=== PATIENT | female | born 1975 | race Hispanic/Latino ===

== ENCOUNTER 2021-04-09 22:30 | Emergency (ER) | payer OTHER ==
[~2021-04-09] VITALS: Ht 157.5 cm; Wt 80.3 kg
[2021-04-10] MEDS ORDERED: KETOROLAC 30MG VIAL (30MG/ML) IVP ONE (03:30)
[2021-04-10 03:37] LABS: BASOPHILS % (AUTO) 0.7 % (0.0-5.0); EOSINOPHILS % (AUTO) 2.5 % (0.0-8.0); HEMATOCRIT 37.6 % (36-48); LYMPHOCYTES % (AUTO) 36.9 % (21.0-51.0); MEAN CORPUSCULAR HEMOGLOBIN 27.4 pg (27.0-33.0); MEAN CORPUSCULAR HGB CONC 32.4 g/dL (32.0-36.0); MEAN CORPUSCULAR VOLUME 84.3 fL (79-99); MONOCYTES % (AUTO) 7.3 % (3.0-13.0); NEUTROPHILS % (AUTO) 52.3 % (40.0-77.0); PLATELET COUNT (AUTO) 317 K/uL (130-400); RED BLOOD CELL COUNT(AUTO) 4.46 MIL/uL (4.00-5.50); RED CELL DISTRIBUTION WIDTH 13.8 % (11.0-15.5)
[2021-04-10 03:38] LABS: APPEARANCE,URINE Clear (CLEAR); BILIRUBIN,URINE Negative (NEGATIVE); COLOR,URINE Yellow (YELLOW); GLUCOSE, URINE (UA) Negative (NEGATIVE); KETONES,URINE Negative (NEGATIVE); LEUKOCYTE ESTERASE ,URINE Small (NEGATIVE); NITRATE,URINE Negative (NEGATIVE); OCCULT BLOOD,URINE Negative (NEGATIVE); PROTEIN,URINE Negative (NEGATIVE); UROBILINOGEN,URINE 0.2 mg/dL (0.2-1.0)
[2021-04-10 03:40] LABS: HCG,QUAL RESULT NEGATIVE (NEGATIVE)
[2021-04-10 03:44] LABS: CREATININE 0.6 mg/dL (0.5-1.5); POTASSIUM 3.3 mmol/L (3.5-5.1)
[2021-04-10 03:48] LABS: ALBUMIN 3.8 g/dL (3.5-5.0); BILIRUBIN,TOTAL 0.3 mg/dL (0.2-1.0); TOTAL PROTEIN, SERUM 7.7 g/dL (6.0-8.3)
[2021-04-10 03:53] LABS: BACTERIA,URINE Rare /HPF (None Seen); MUCUS,URINE Rare LPF (None Seen); RBC,URINE 0-1 /HPF (0-1)
[2021-04-10 05:03] VITALS: BP 132/81
[2021-04-10] MEDS ORDERED: ACET1TAB25 PO (05:07)
[2021-04-10] MEDS ORDERED: ONDA4TAB10 PO (05:07)
== END 2021-04-10 05:15 | disposition home or self-care (01) ==
LOC: EDH 22:30
DX: K80.70 Calculus of gallbladder and bile duct without cholecystitis without obstruction (principal); Z79.1 Long term (current) use of non-steroidal anti-inflammatories (NSAID)
CPT/HCPCS: 36415; 76705; 80053; 81001; 81025; 83690; 85025; 96374; 99284; J1885

== ENCOUNTER 2021-05-01 00:08 | Emergency (ER) | payer OTHER ==
[~2021-05-01] VITALS: Ht 157.5 cm; Wt 72.1 kg
[~2021-05-01 00:08] MED LIST: ACET1TAB25 PO; ONDA4TAB10 PO
[2021-05-01] MEDS ORDERED: 0.9%NACL 1000ML 1,000 ML IV ONE (06:00)
[2021-05-01] MEDS ORDERED: ONDANSETRON 4MG INJ IVP ONE (06:00)
[2021-05-01] MEDS ORDERED: FAMOTIDINE 20MG VIAL IV ONE (06:00)
[2021-05-01] MEDS ORDERED: PANTOPRAZOLE 40 MG/VIAL IVP ONE (06:00)
[2021-05-01] MEDS ORDERED: METOCLOPRAMIDE 10 MG/2 ML VIAL IVP ONE (06:00)
[2021-05-01 06:59] LABS: BASOPHILS % (AUTO) 0.5 % (0.0-5.0); EOSINOPHILS % (AUTO) 2.2 % (0.0-8.0); HEMATOCRIT 38.2 % (36-48); LYMPHOCYTES % (AUTO) 35.3 % (21.0-51.0); MEAN CORPUSCULAR HEMOGLOBIN 27.1 pg (27.0-33.0); MEAN CORPUSCULAR HGB CONC 31.4 g/dL (32.0-36.0); MEAN CORPUSCULAR VOLUME 86.4 fL (79-99); MONOCYTES % (AUTO) 7.7 % (3.0-13.0); NEUTROPHILS % (AUTO) 54.1 % (40.0-77.0); PLATELET COUNT (AUTO) 289 K/uL (130-400); RED BLOOD CELL COUNT(AUTO) 4.42 MIL/uL (4.00-5.50); RED CELL DISTRIBUTION WIDTH 14.6 % (11.0-15.5); WHITE BLOOD COUNT (AUTO) 5.6 K/uL (4.8-10.8)
[2021-05-01 07:17] LABS: ALBUMIN 3.8 g/dL (3.5-5.0); BILIRUBIN,TOTAL 0.3 mg/dL (0.2-1.0); CREATININE 0.6 mg/dL (0.5-1.5); POTASSIUM 3.4 mmol/L (3.5-5.1); TOTAL PROTEIN, SERUM 7.3 g/dL (6.0-8.3)
[2021-05-01] MEDS ORDERED: ONDA4TAB10 PO (07:20)
[2021-05-01] MEDS ORDERED: DICY20TA2 PO (07:20)
[2021-05-01] MEDS ORDERED: PANT40TA PO (07:20)
[2021-05-01] MEDS ORDERED: METO-296 PO (07:20)
[2021-05-01 07:29] LABS: APPEARANCE,URINE Cloudy (CLEAR); BILIRUBIN,URINE Negative (NEGATIVE); COLOR,URINE Yellow (YELLOW); GLUCOSE, URINE (UA) Negative (NEGATIVE); KETONES,URINE Trace mg/dL (NEGATIVE); LEUKOCYTE ESTERASE ,URINE Moderate (NEGATIVE); NITRATE,URINE Negative (NEGATIVE); OCCULT BLOOD,URINE Large (NEGATIVE); PROTEIN,URINE Negative (NEGATIVE); UROBILINOGEN,URINE 0.2 mg/dL (0.2-1.0)
[2021-05-01 07:30] LABS: HCG,QUAL RESULT NEGATIVE (NEGATIVE)
[2021-05-01 07:43] VITALS: BP 102/71
[2021-05-01 07:55] LABS: BACTERIA,URINE Few /HPF (None Seen); SQUAMOUS EPITHELIAL CELL,UR Few /HPF (0-2)
== END 2021-05-01 07:51 | disposition home or self-care (01) ==
LOC: EDH 00:08
DX: K80.70 Calculus of gallbladder and bile duct without cholecystitis without obstruction (principal); E86.9 Volume depletion, unspecified
CPT/HCPCS: 36415; 76705; 80053; 81001; 81025; 83605; 83690; 85025; 87077; 87088; 87186; 96361 ×2; 96374; 96375; 99284; C9113; J2405; J2765; J3490; J7030

== ENCOUNTER 2024-08-04 19:41 | Emergency (ER) | payer SELFPAY ==
[~2024-08-04] VITALS: Ht 157.5 cm; Wt 75.3 kg
[~2024-08-04 19:41] MED LIST changes: +ACET-2079 PO; -ACET1TAB25 PO; +DICY20TA2 PO; +METO-296 PO; +ONDA-243 PO; -ONDA4TAB10 PO; +PANT40TA PO
--- NOTE | 2024-08-04 20:15 | ERN ---
ED Note History of Present Illness Stated Complaint: C/O RECTAL W/VAGINAL BLEEDING; SENT HERE BY PMD Chief Complaint: Rectal Bleed Time Seen by : 20:10 Dictation: This is a 48-year-old female came to the ER with complaints of vaginal bleeding and rectal bleeding since last . She indicated that when she wiped after a bowel movement she saw small amounts of blood in there. She had her monthly menses 2 weeks ago. And she wiped her rectum from back to front and also thought that there was some vaginal bleeding. Her primary care physician sent her to [facility] Friday and they evaluated her and obtain blood work which was totally normal and she was recommended to see a specialist. She decided to come on her own here to get a 2nd opinion No pelvic pain no nausea vomitings no hematemesis or melena. No vaginal discharge no history of any malignancy in the pelvis no history of any radiation TEMPERATURE 98.7� PULSE 92 RESPIRATIONS 20 BLOOD PRESSURE 150/91 WITH A PULSE OXIMETRY OF 99% Allergies: Coded Allergies: No Known Allergies (Unverified Allergy, Unknown, 04/09/21) Home Meds Active Scripts Phenylephrine HCl/Bowman Butter (Hemorrhoidal Suppositories) 0.25 %-88.44 % Supp.rect, 1 EACH RC DAILY for 7 Days, #7 EA Prov:LALA HENSLEY MD 08/04/24 Nitrofurantoin Monohyd/M-Cryst (Macrobid 100 mg Capsule) 100 Mg Capsule, 1 CAP PO BID for 7 Days, #14 CAP 0 Refills Prov:LALA HENSLEY MD 08/04/24 Pantoprazole Sodium (Protonix) 40 Mg Tablet.dr, 40 MG PO DAILY, #10 TAB 0 Refills Prov:DEVON GRANGER MD 05/01/21 Metoclopramide HCl (Reglan) 10 Mg Tablet, 10 MG PO TIDP, #20 TAB 0 Refills Prov:DEVON GRANGER MD 05/01/21 Ondansetron (Ondansetron Odt) 4 Mg Tab.rapdis, 4 MG PO Q6HPRN, #20 TAB 0 Refills Prov:DEVON GRANGER MD 05/01/21 Dicyclomine HCl (Bentyl) 20 Mg Tab, 20 MG PO Q6HPRN, #20 TAB 0 Refills Prov:DEVON GRANGER MD 05/01/21 Ondansetron (Ondansetron Odt) 4 Mg Tab.rapdis, 4 MG PO TIDP PRN for NAUSEA/VOMITING, #20 TAB 0 Refills Prov:JC ASKEW MD 04/10/21 Acetaminophen with Codeine (Acetaminophen-Cod #3 Tablet) 1 Each Tablet, 1-2 TAB PO Q6H PRN for PAIN LEVEL 7 TO 10, #20 TAB 0 Refills Prov:JC ASKEW MD 04/10/21 Past Medical History Past Medical History: No Pertinent History Surgical History: Cholecystectomy Family History: Negative Social History: Negative, Other History: Not Applicable RN Note Reviewed/Agreed w/PFSH: Yes Review of System Dictation Constitutional: Negative for fever,chills, and weight loss Eyes: Negative for injury, pain,redness, and discharge ENT: Negative for injury,pain or swelling Cardiovascular: Negative for chest pain, palpitations, and edema Respiratory: Negative for shortness of breath, cough, and wheezing, Abdomen/GI: Negative for abdominal pain, nausea, vomiting, diarrhea, and constipation positive for rectal bleeding Back: Negative for injury and pain : Negative for injury, positive for vaginal bleeding bleeding MS/Extremity: Negative for injury and deformity Skin: Negative for rash, and discoloration Neuro: Negative for headache, weakness, numbness, tingling, and seizure Psych: Negative for suicide ideation, homicidal ideation, and hallucinations Initial Vital Sign VS Vital Signs Date Time Temp Pulse Resp B/P (MAP) Pulse Ox O2 Delivery O2 Flow Rate FiO2 08/04/24 19:43 98.8 92 20 150/91 99 Room Air Physical Exam Dictation General: awake, alert, NAD Head/Face: Normocephalic, atraumatic Eyes: PERRL, EOMI, vision at baseline ENT: oral cavity clear, TMs clear, no signs of infection Neck: Trachea midline, supple, no nuchal rigidity Cardiovascular: RRR, normal S1/S2, No MRGs, no JVD Respiratory: CTAB, no respiratory distress, No rales or wheezes Abdomen: Soft, non-tender, non-distended, normal bowel sounds, no guarding or rebound. Skin: Warm, dry, normal turgor, no rash --no vaginal bleeding on pelvic exam. MS/Extremity: Pulses equal, no cyanosis, neurovascular intact, FROM Neuro: COAx4, GCS 15, strength 5/5, CN 2-12 intact, normal cerebellar exam, normal gait, Psych: Normal behavior, mood, and affect normal Extremities-trace edema without any palpable cords, Homans sign is negative Results (Laboratory/Radiology) Laboratory/Radiology Laboratory Tests Test 08/04/24 20:27 08/04/24 20:30 Urine Color LIGHT-YELLOW (YELLOW) Urine Appearance CLOUDY (CLEAR) H Urine pH 7.5 (5.0-8.0) Urine Specific [place] 1.021 (1.001-1.031) Urine Protein 10 mg/dL (NEGATIVE) H Urine Glucose (UA) NEGATIVE mg/dL (NEGATIVE) Urine Ketones NEGATIVE mg/dL (NEGATIVE) Urine Occult Blood MODERATE (NEGATIVE) H Urine Nitrate NEGATIVE (NEGATIVE) Urine Bilirubin NEGATIVE mg/dL (NEGATIVE) Urine Urobilinogen 0.2 mg/dL (0.2-1.0) Urine Leukocyte Esterase 75 Pr[place]anna/uL (NEGATIVE) H Urine RBC 51-100 /HPF (0-1) H Urine WBC 2-5 /HPF (0-1) H Urine Squamous Epithelial Cells FEW /HPF (0-2) Urine Other Crystals (Auto) 13 /HPF (None Seen) Urine Amorphous Crystals (Auto) FEW /LPF (None Seen) Urine Bacteria FEW /HPF (None Seen) White Blood Count 8.1 K/uL (4.8-10.8) Red Blood Count 3.94 MIL/uL (4.00-5.50) L Hemoglobin 11.2 g/dL (12.0-16.0) L Hematocrit 34.1 % (36-48) L Mean Corpuscular Volume 86.5 fL (79-99) Mean Corpuscular Hemoglobin 28.4 pg (27.0-33.0) Mean Corpuscular Hemoglobin Concent 32.8 g/dL (32.0-36.0) Red Cell Distribution Width 14.3 % (11.0-15.5) Platelet Count 384 K/uL (130-400) Mean Platelet Volume 9.5 fL (7.5-10.5) Immature Granulocyte % (Auto) 0.2 % (0-1) Neutrophils (%) (Auto) 69.1 % (40.0-77.0) Lymphocytes (%) (Auto) 22.3 % (21.0-51.0) Monocytes (%) (Auto) 6.8 % (3.0-13.0) Eosinophils (%) (Auto) 1.1 % (0.0-8.0) Basophils (%) (Auto) 0.5 % (0.0-5.0) Neutrophils # (Auto) 5.6 K/uL (1.8-7.7) Lymphocytes # (Auto) 1.8 K/uL (1.0-4.8) Monocytes # (Auto) 0.6 K/uL (0.1-1.0) Eosinophils # (Auto) 0.09 K/uL (0.00-0.70) Basophils # (Auto) 0.04 K/uL (0.00-0.20) Absolute Immature Granulocyte (auto 0.02 K/uL (0-1) Nucleated Red Blood Cells 0.0 % (0.0-0.19) Sodium Level 144 mmol/L (136-145) Potassium Level 3.4 mmol/L (3.5-5.1) L Chloride Level 106 mmol/L (101-111) Carbon Dioxide Level 32 mmol/L (21-32) Blood Urea Nitrogen 14 mg/dL (7-18) Creatinine 0.7 mg/dL (0.5-1.0) Glomerular Filtration Rate Calc 105 mL/min (>90) Random Glucose 102 mg/dL (70-105) Total Calcium 8.6 mg/dL (8.5-10.1) Labs Reviewed?: Yes ED Course ED Course Orders Procedure Category Date Status Time Cbc With Differential LAB 08/04/24 Complete 20:12 Basic Metabolic Panel LAB 08/04/24 Complete 20:12 Urinalysis Profile LAB 08/04/24 Complete 20:12 Culture Urine KALA 08/04/24 In Process 20:35 Vital Signs Date Time Temp Pulse Resp B/P (MAP) Pulse Ox O2 Delivery O2 Flow Rate FiO2 08/04/24 19:43 98.8 92 20 150/91 99 Room Air We will perform diagnostic labs, advanced imaging and administer medications according to the patient's complaint. Once the results are available, will review and personally interpreted the labs to rule out any acute life- threatening emergency the trach require immediate intervention and treatment. I will then re-evaluate the patient after treatment and diagnostic exams have return to determine whether the patient requires any further testing, can safely be discharged home or need further admission to hospital for additional treatment and evaluation. Labs reviewed CBC is with a normal limits BNP 7 shows a potassium of 3.4 otherwise with a normal limits. Urinalysis shows positive leuko esterase and blood but WBCs were only 3-5. I updated the patient and family and stated that it would be reasonable to treat her for a UTI as well as with the hemorrhoidal suppositories and she should follow up with her primary to get a referral to GI. Medical Decision Making MDM MDM: Differential diagnosis: Hemorrhoidal bleeding, vaginal bleeding, rectovaginal fistula, vaginitis, inflamed hemorrhoids Rationale: Tests considered and ordered secondary to shared decision making include: Previous outside records reviewed: Old ER visits. Risk of complication and/or morbidity or mortality of patient management: None Medications-Per medication reconciliation Need for hospitalization: Patient does not meet criteria for hospitalization. Need for emergency major/minor surgery: No There are no social concerns with this patient. Prescription drug management Prescriptions will include symptomatic care Patient's prior external medical records from other ER visits were reviewed by me as indicated. Prior testing and results from previous visits were reviewed. Prior tests were taken into account with medical decision making and resource utilization, independent historian/historians were used to obtain complete doctors hospital history. I independently interpreted the test that were performed, results were reviewed by me and considered findings on radiology if ordered. Medical management and examination interpretation discussions were had by me with other qualified healthcare professionals as indicated for the patient's care. Procedure Additional Procedures: other Progress Vaginal examination-patient was placed in lithotomy position and her daughter was at bedside. Labia major a minora and vaginal introitus normal. Finger and gloved exam did not reveal any obvious blood in the vagina. Cervix normal No immediate complications Problem List Problem List: (1) Hemorrhoids (2) Bleeding per rectum (3) UTI (urinary tract infection) DX & DISP Disposition: Discharge Departure Impression: Primary Impression: Hemorrhoids Additional Impressions: Bleeding per rectum, UTI (urinary tract infection) Condition: Stable Scripts Phenylephrine HCl/Bowman Butter (Hemorrhoidal Suppositories) 0.25 %-88.44 % Supp.rect 1 EACH RC DAILY for 7 Days, #7 EA Prov: LALA HENSLEY MD 08/04/24 Nitrofurantoin Monohyd/M-Cryst (Macrobid 100 mg Capsule) 100 Mg Capsule 1 CAP PO BID for 7 Days, #14 CAP 0 Refills Prov: LALA HENSLEY MD 08/04/24 Additional Instructions: Patient and the caregiver have been informed of all the diagnostic tests and the imaging conducted during the today's visit to the emergency room and has verbalized understanding of the results I have personally reviewed and interpre mitra all diagnostic exams performed here in the ER today as well as the vital signs documented by the nursing staff. The patient is now being discharged to home and should follow up with the primary care physician or the specialist as directed by the ER staff. Follow-up with primary care provider in 1 to 2 days. Take medications as directed here in the emergency room. Okay to continue home medications unless otherwise discussed during your visit in the emergency room today. Return to your nearest emergency room if symptoms worsen or if there is no improvement. Call 911 if you need immediate assistance. Take Tylenol or Motrin o [id number] as needed and if no contraindications are present. Increase oral hydration. A wound culture or urine culture was ordered here in the emergency room department please follow-up with primary care provider and advise them to get repeat ports from our facility. If you had any Gunnar wrap/splints that were applied here, please do not remove them until you see your primary care or specialty. Referrals: VIVIEN SOTELO MD (PCP) LALA HENSLEY MD August 04, 2024 20:15
[2024-08-04 20:35] LABS: ADD UA MICROSCOPIC YES; APPEARANCE,URINE CLOUDY (CLEAR); BILIRUBIN,URINE NEGATIVE (NEGATIVE); COLOR,URINE LIGHT-YELLOW (YELLOW); GLUCOSE, URINE (UA) NEGATIVE (NEGATIVE); KETONES,URINE NEGATIVE (NEGATIVE); LEUKOCYTE ESTERASE ,URINE 75 Leu/uL (NEGATIVE); NITRATE,URINE NEGATIVE (NEGATIVE); OCCULT BLOOD,URINE MODERATE (NEGATIVE); PH,URINE 7.5 (5.0-8.0); PROTEIN,URINE 10 mg/dL (NEGATIVE); UROBILINOGEN,URINE 0.2 mg/dL (0.2-1.0)
[2024-08-04 20:42] LABS: BASOPHILS # (AUTO) 0.04 K/uL (0.00-0.20); BASOPHILS % (AUTO) 0.5 % (0.0-5.0); EOSINOPHILS # (AUTO) 0.09 K/uL (0.00-0.70); EOSINOPHILS % (AUTO) 1.1 % (0.0-8.0); HEMATOCRIT 34.1 % (36-48); IMMATURE GRANULOCYTE ABSOLUTE 0.02 K/uL (0-1); LYMPHOCYTES # (AUTO) 1.8 K/uL (1.0-4.8); LYMPHOCYTES % (AUTO) 22.3 % (21.0-51.0); MEAN CORPUSCULAR HEMOGLOBIN 28.4 pg (27.0-33.0); MEAN CORPUSCULAR HGB CONC 32.8 g/dL (32.0-36.0); MEAN CORPUSCULAR VOLUME 86.5 fL (79-99); MONOCYTES # (AUTO) 0.6 K/uL (0.1-1.0); MONOCYTES % (AUTO) 6.8 % (3.0-13.0); NEUTROPHILS # (AUTO) 5.6 K/uL (1.8-7.7); NEUTROPHILS % (AUTO) 69.1 % (40.0-77.0); PLATELET COUNT (AUTO) 384 K/uL (130-400); RED BLOOD CELL COUNT(AUTO) 3.94 MIL/uL (4.00-5.50); RED CELL DISTRIBUTION WIDTH 14.3 % (11.0-15.5); WHITE BLOOD COUNT (AUTO) 8.1 K/uL (4.8-10.8)
[2024-08-04 20:52] LABS: BACTERIA,URINE FEW /HPF (None Seen); MUCUS,URINE RARE LPF (None Seen); SQUAMOUS EPITHELIAL CELL,UR FEW /HPF (0-2); UNCLASSIFIED CRYSTAL 13 /HPF (None Seen)
[2024-08-04 20:52] LABS: CREATININE 0.7 mg/dL (0.5-1.0); POTASSIUM 3.4 mmol/L (3.5-5.1)
[2024-08-04 20:53] LABS: RBC,URINE 51-100 /HPF (0-1)
[2024-08-04] MEDS ORDERED: PHEN1SUP RC (21:08)
[2024-08-04] MEDS ORDERED: NITR100C4 PO (21:08)
[2024-08-04 21:45] VITALS: BP 147/87; PULSE 90; RESP 17; TEMP 98.5; O2SAT 98
== END 2024-08-04 21:46 | disposition home or self-care (01) ==
LOC: EDH 19:41
DX: K64.9 Unspecified hemorrhoids (principal); K62.5 Hemorrhage of anus and rectum; N39.0 Urinary tract infection, site not specified; Z79.899 Other long term (current) drug therapy; Z87.19 Personal history of other diseases of the digestive system; Z90.49 Acquired absence of other specified parts of digestive tract
CPT/HCPCS: 36415; 80048; 81001; 85025; 87086; 99283

== ENCOUNTER 2024-09-25 17:09 | Emergency (ER) | payer SELFPAY ==
[~2024-09-25] VITALS: Ht 157.5 cm; Wt 74.8 kg
[~2024-09-25 17:09] MED LIST changes: +NITR100C4 PO; +PHEN1SUP RC
[2024-09-25 18:00] LABS: IMMATURE GRANULOCYTE ABSOLUTE 0.01 K/uL (0-1); NUCLEATED RED BLOOD CELLS 0.0 % (0.0-0.19); PLATELET COUNT (AUTO) 336 K/uL (130-400); RED BLOOD CELL COUNT(AUTO) 4.33 MIL/uL (4.00-5.50); RED CELL DISTRIBUTION WIDTH 13.4 % (11.0-15.5); WHITE BLOOD COUNT (AUTO) 6.7 K/uL (4.8-10.8)
[2024-09-25 18:10] LABS: INR 1.0 (0.85-1.15)
[2024-09-25 18:13] LABS: CREATININE 0.5 mg/dL (0.5-1.0); GLOMERULAR FILTR. RATE CALC 114 mL/min (>90); GLUCOSE,RANDOM 93 mg/dL (70-105); SODIUM SERUM 145 mmol/L (136-145); UREA NITROGEN, BLOOD 11 mg/dL (7-18)
[2024-09-25 18:17] LABS: ASPARTATE AMINOTRANSFERASE 12 U/L (10-37); TOTAL PROTEIN, SERUM 7.5 g/dL (6.0-8.3)
--- NOTE | 2024-09-25 18:59 | NUR ---
PT PLACED INTO ROOM 4 AT THIS TIME
--- NOTE | 2024-09-25 19:15 | ERN ---
General Chief Complaint: Abdominal Pain Stated Complaint: ABDOMINAL PAIN Time Seen by MD: 17:12 Time Seen by Midlevel: 17:12 Source: patient History of Present Illness Initial Comments The patient is a 48-year-old female presenting to the emergency department with right upper quadrant abdominal pain and one episode of bloody stools. She does report multiple episodes of bloody stool since June of this year however she does suffer from hemorrhoids. She states that today's episode was different she does not have any visible external hemorrhoids. Allergies: Coded Allergies: No Known Allergies (Unverified Allergy, Unknown, 04/09/21) Home Meds Active Scripts Phenylephrine HCl/[place] Butter (Hemorrhoidal Suppositories) 0.25 %-88.44 % Supp.rect, 1 EACH RC DAILY for 7 Days, #7 EA Prov:LALA HENSLEY MD 08/04/24 Nitrofurantoin Monohyd/M-Cryst (Macrobid 100 mg Capsule) 100 Mg Capsule, 1 CAP PO BID for 7 Days, #14 CAP 0 Refills Prov:LALA HENSLEY MD 08/04/24 Pantoprazole Sodium (Protonix) 40 Mg Tablet.dr, 40 MG PO DAILY, #10 TAB 0 Refills Prov:DEVON GRANGER MD 05/01/21 Metoclopramide HCl (Reglan) 10 Mg Tablet, 10 MG PO TIDP, #20 TAB 0 Refills Prov:DEVON GRANGER MD 05/01/21 Ondansetron (Ondansetron Odt) 4 Mg Tab.rapdis, 4 MG PO Q6HPRN, #20 TAB 0 Refills Prov:DEVON GRANGER MD 05/01/21 Dicyclomine HCl (Bentyl) 20 Mg Tab, 20 MG PO Q6HPRN, #20 TAB 0 Refills Prov:DEVON GRANGER MD 05/01/21 Ondansetron (Ondansetron Odt) 4 Mg Tab.rapdis, 4 MG PO TIDP PRN for NAUSEA/VOMITING, #20 TAB 0 Refills Prov:JC ASKEW MD 04/10/21 Acetaminophen with Codeine (Acetaminophen-Cod #3 Tablet) 1 Each Tablet, 1-2 TAB PO Q6H PRN for PAIN LEVEL 7 TO 10, #20 TAB 0 Refills Prov:JC ASKEW MD 04/10/21 Past Medical History Past Medical History: No Pertinent History Medical History Other: pmhx hemorrhoids Past Surgical History: Cholecystectomy Family History Family History: Negative Social History Social History: Negative, Other Female( History) History: Not Applicable ROS Dictation CONSTITUTIONAL: Negative except for HPI HEAD/FACE: Negative except for HPI EENT: Negative except for HPI RESPIRATORY: Negative except for HPI GASTROINTESTINAL/ABDOMINAL: Negative except for HPI GENITOURINARY: Negative except for HPI MUSCULOSKELETAL: Negative except for HPI INTEGUMENTARY: Negative except for HPI NEUROLOGICAL/PSYCH: Negative except for HPI HEMATOLOGIC/LYMPHATIC: Negative except for HPI All Systems Negative, Except as noted above. 13 point review of systems assessed and all negative except for above. Physical Exam Physical Exam Dictation Vital Signs reviewed General Appearance: Alert, oriented x 3, no acute distress, well developed, nourished. Head and Face: non-traumatic. Eyes: PERRL, pink conjunctivas, eyelid no trauma, anterior chamber with arcus senilis. Ears: Pinnas intact and no signs of trauma or erythema ear canals clear and no discharge TM no erythema Nose: No discharge, no bleeding. Oropharynx: Mouth normal, tongue pink, pharynx clear,no erythema, tonsils no exudates, no abscesses noted, mucous membrane moist Neck: Supple, non-tender, no thyromegaly, no masses, no JVD, no bruits Breast:Deferred Chest:No tenderness, no crepitus, no paradoxical movement, no retractions Lungs:Clear, well-ventilated, symmetric, no rales, no wheezing, no rhonchi, no stridor, good breath sounds bilaterally Heart: Regular rate, regular rhythm, no murmur, no gallops Vascular: no peripheral edema, Abdomen: Soft, positive bowel sounds, nondistended, no guarding, nontender, no rebound, no masses no hepatomegaly, no splenomegaly, no Mckay's sign, no hernias. Rectal: Deferred Genital: Deferred Neurological: Normal speech, motor function intact, sensory function intact Musculoskeletal: Neck nontender, full range of motion, back nontender, full range of motion, Extremities: nontender, full range of motion Skin: Color pink, dry, no turgor, no rash, no lacerations, no abrasions, no contusions. Lymphatic: Deferred Results Laboratory and Microbiology Lab and Micro Result Laboratory Tests Test 09/25/24 17:44 White Blood Count 6.7 K/uL (4.8-10.8) Red Blood Count 4.33 MIL/uL (4.00-5.50) Hemoglobin 11.6 g/dL (12.0-16.0) L Hematocrit 37.1 % (36-48) Mean Corpuscular Volume 85.7 fL (79-99) Mean Corpuscular Hemoglobin 26.8 pg (27.0-33.0) L Mean Corpuscular Hemoglobin Concent 31.3 g/dL (32.0-36.0) L Red Cell Distribution Width 13.4 % (11.0-15.5) Platelet Count 336 K/uL (130-400) Mean Platelet Volume 9.6 fL (7.5-10.5) Immature Granulocyte % (Auto) 0.1 % (0-1) Neutrophils (%) (Auto) 69.9 % (40.0-77.0) Lymphocytes (%) (Auto) 22.9 % (21.0-51.0) Monocytes (%) (Auto) 5.5 % (3.0-13.0) Eosinophils (%) (Auto) 1.2 % (0.0-8.0) Basophils (%) (Auto) 0.4 % (0.0-5.0) Neutrophils # (Auto) 4.7 K/uL (1.8-7.7) Lymphocytes # (Auto) 1.5 K/uL (1.0-4.8) Monocytes # (Auto) 0.4 K/uL (0.1-1.0) Eosinophils # (Auto) 0.08 K/uL (0.00-0.70) Basophils # (Auto) 0.03 K/uL (0.00-0.20) Absolute Immature Granulocyte (auto 0.01 K/uL (0-1) Nucleated Red Blood Cells 0.0 % (0.0-0.19) Prothrombin Time 10.6 SEC (9.6-11.6) Prothromb Time International Ratio 1.00 (0.85-1.15) Activated Partial Thromboplast Time 27.6 SEC (26.3-35.5) Sodium Level 145 mmol/L (136-145) Potassium Level 3.8 mmol/L (3.5-5.1) Chloride Level 107 mmol/L (101-111) Carbon Dioxide Level 28 mmol/L (21-32) Blood Urea Nitrogen 11 mg/dL (7-18) Creatinine 0.5 mg/dL (0.5-1.0) Glomerular Filtration Rate Calc 114 mL/min (>90) Random Glucose 93 mg/dL (70-105) Total Calcium 8.3 mg/dL (8.5-10.1) L Total Bilirubin 0.3 mg/dL (0.2-1.0) Direct Bilirubin < 0.1 mg/dL (0.0-0.3) Aspartate Amino Transf (AST/SGOT) 12 U/L (10-37) Alanine Aminotransferase (ALT/SGPT) 17 U/L (12-78) Alkaline Phosphatase 107 U/L (50-136) Total Protein 7.5 g/dL (6.0-8.3) Albumin 3.8 g/dL (3.5-5.0) Labs Reviewed?: Yes MDM MDM: Differential diagnosis: Upper GI bleed, lower GI bleed, There are no social concerns with this patient. Prescription drug management Prescriptions will include: Medical management and examination interpretation discussions were had by me with other qualified healthcare professionals as indicated for the patient's care. ED Course Orders Procedure Category Date Status Time Cbc With Differential LAB 09/25/24 Complete 17:18 Basic Metabolic Panel LAB 09/25/24 Complete 17:18 Pt And Ptt LAB 09/25/24 Complete 17:18 Hepatic Function Panel LAB 09/25/24 Complete 17:18 Occult Blood Stool LAB 09/25/24 Logged Single Only 17:18 Ct Abdomen/Pelvis CT 09/25/24 Resulted W/Contrast 17:18 Iohexol (Omnipaque) PHA 09/25/24 Complete 21:06 Current Medications Medications (Trade) Dose Ordered Sig/Joseph Route PRN Reason Start Time Stop Time Status Last Admin Dose Admin Iohexol (Omnipaque) 75 ml STK-MED ONCE IV 09/25/24 21:06 09/25/24 21:11 DC Vital Signs Date Time Temp Pulse Resp B/P (MAP) Pulse Ox O2 Delivery O2 Flow Rate FiO2 09/25/24 21:31 69 18 149/87 99 Room Air* 0 21 09/25/24 20:30 74 18 154/82 99 Room Air* 0 09/25/24 19:41 97.5 83 18 159/78 99 Room Air* 0 09/25/24 17:17 98.1 96 18 153/90 99 Room Air* 0 09/25/24 17:11 98.1 96 18 153/90 99 Room Air 0 [facility] [address] [place] [address] IMAGING REPORT Signed PATIENT: JIMY RODRIGUEZ MR#: [id number] : 1975 SEX: F AGE: 48 LOCATION: [facility] ORDER 21 STATUS: REG REPORT#: [id number] SERVICE 17 REASON: rectal bleeding with RUQ abd pain ORDERING PHYSICIAN: DEREK THOMAS PROCEDURE: ABD PEL W - CT ABDOMEN/PELVIS W/CONTRAST EXAMINATION: CT Abdomen and Pelvis with IV contrast CLINICAL HISTORY: Patient presents with rectal bleeding and right upper quadrant abdominal pain. COMPARISON: Ultrasound right upper quadrant dated May 01, 2021. TECHNIQUE: Axial computed tomography images of the abdomen and pelvis with intravenous contrast. Sagittal and coronal reformatted images submitted for interpretation. CONTRAST: With intravenous contrast. FINDINGS: LUNG BASES: The lung bases are clear. No pleural effusions. LIVER: The liver is unremarkable. GALLBLADDER AND BILE DUCTS: The gallbladder is surgically absent. No biliary ductal dilatation. PANCREAS: The pancreas is unremarkable. SPLEEN: The spleen is unremarkable. ADRENAL GLANDS: The adrenal glands are unremarkable. KIDNEYS, URETERS, AND BLADDER: The kidneys are within normal limits. No hydronephrosis or hydroureter. No urinary calculi. STOMACH AND BOWEL: The stomach and bowel are unremarkable. No evidence of bowel obstruction. No findings suggest enteritis or colitis. APPENDIX: No evidence of acute appendicitis on CT examination. PERITONEUM: No free fluid. No free air. LYMPH NODES: No lymphadenopathy. REPRODUCTIVE: The uterus is anteverted and normal in size. There is a fundal intramural fibroid measuring 1.6 x 2 x 1.4 cm. The endometrium is thickened, measuring 1.9 cm. Both ovaries are normal. VASCULATURE: No evidence of abdominal aortic aneurysm. BONES: No aggressive-appearing osseous lesion. No acute osseous pathology. DIAPHRAGM: Minimal elevation of the left hemidiaphragm. IMPRESSION: Thickened endometrium measuring 1.9 cm. Recommend transvaginal sonography or MRI pelvis. Fundal intramural uterine fibroid. Status post cholecystectomy. Minimal elevation of the left hemidiaphragm. No acute intra-abdominal or pelvic abnormality. /[place] DICTATED BY: MIRIAM DIETZ Jr., MD DATE: 09/26/2422 ELECTRONICALLY SIGNED BY: MIRIAM DIETZ Jr., MD DATE: 09/26/2422 DX & DISP Disposition: Discharge Departure Impression: Primary Impression: Uterine fibroid Additional Impressions: Thickened endometrium, Vaginal bleeding Condition: Stable Referrals: SOURAV PENG (PCP) FLORESITA CHAUDHARI MD, NOEMI MD MENDEZ, JAROD N MD PEREZ,POLO Rivera MD I have reviewed the case, and I agree with, Diagnosis and Plan I performed the substantive portion of the visit. I have reviewed and personally made and approve the management plan that is documented in the note by myself or the SPENSER. I acknowledge for responsibility for the patient's ma nagement plan. DEREK THOMAS Sep 25, 2024 19:15
--- NOTE | 2024-09-25 19:26 | NUR ---
PER RN, PT NOT READY
[2024-09-25] MEDS ORDERED: IOHEXOL-350 75 ML VIAL IV ONE (21:06)
--- NOTE | 2024-09-25 23:24 | HMCIMG ---
EXAMINATION: CT Abdomen and Pelvis with IV contrast CLINICAL HISTORY: Patient presents with rectal bleeding and right upper quadrant abdominal pain. COMPARISON: Ultrasound right upper quadrant dated May 01, 2021. TECHNIQUE: Axial computed tomography images of the abdomen and pelvis with intravenous contrast. Sagittal and coronal reformatted images submitted for interpretation. CONTRAST: With intravenous contrast. FINDINGS: LUNG BASES: The lung bases are clear. No pleural effusions. LIVER: The liver is unremarkable. GALLBLADDER AND BILE DUCTS: The gallbladder is surgically absent. No biliary ductal dilatation. PANCREAS: The pancreas is unremarkable. SPLEEN: The spleen is unremarkable. ADRENAL GLANDS: The adrenal glands are unremarkable. KIDNEYS, URETERS, AND BLADDER: The kidneys are within normal limits. No hydronephrosis or hydroureter. No urinary calculi. STOMACH AND BOWEL: The stomach and bowel are unremarkable. No evidence of bowel obstruction. No findings suggest enteritis or colitis. APPENDIX: No evidence of acute appendicitis on CT examination. PERITONEUM: No free fluid. No free air. LYMPH NODES: No lymphadenopathy. REPRODUCTIVE: The uterus is anteverted and normal in size. There is a fundal intramural fibroid measuring 1.6 x 2 x 1.4 cm. The endometrium is thickened, measuring 1.9 cm. Both ovaries are normal. VASCULATURE: No evidence of abdominal aortic aneurysm. BONES: No aggressive-appearing osseous lesion. No acute osseous pathology. DIAPHRAGM: Minimal elevation of the left hemidiaphragm. IMPRESSION: Thickened endometrium measuring 1.9 cm. Recommend transvaginal sonography or MRI pelvis. Fundal intramural uterine fibroid. Status post cholecystectomy. Minimal elevation of the left hemidiaphragm. No acute intra-abdominal or pelvic abnormality. /[place]
[2024-09-26 00:22] VITALS: BP 130/78; PULSE 82; RESP 20; TEMP 98.2; O2SAT 99
== END 2024-09-26 00:31 | disposition home or self-care (01) ==
LOC: EDH 17:09
DX: D25.1 Intramural leiomyoma of uterus (principal); R93.89 Abnormal findings on diagnostic imaging of other specified body structures; N93.9 Abnormal uterine and vaginal bleeding, unspecified; Z79.899 Other long term (current) drug therapy; Z90.49 Acquired absence of other specified parts of digestive tract
CPT/HCPCS: 99285; 74177; 80076; 80048; 85025; 85610; 85730; 36415; Q9967